=== PATIENT | male | born 1930 | race Caucasian/White ===

== ENCOUNTER → 2017-07-04 | Outpatient (CLI) | payer MEDICARE ==
[~2017-07-04] MED LIST: ACET650T24 PO; AMIO200T2 PO; AMLO10TA2 PO; AMLO5TAB2 PO; ASCO500C6 PO; ASPI-1181 PO; ASPI-555 PO; CA C1TAB98 PO; CARV12.511 PO; CARV25TA PO; CHRO1000 PO; CILO50TA PO; CILO50TA9 PO; CLOP75TA32 PO; CYAN1TAB44 PO; DOCU100C33 PO; DOXA4TAB3 PO; GLIP5TAB11 PO; GLYB5TAB8 PO; HYDR12.54 PO; KRIL1CAP18 PO; MAGN250T10 PO; MAGN400C PO; METF10004 PO; PANT40TA25 PO; POTA2TAB18 PO; ROSU20TA PO; TAMS0.4C32 PO; VALS160T28 PO; VITA1CAP17 PO; VITA400C70 PO; [UNRECOGNIZED DRUG - OTHER] PO
== END | disposition home or self-care (01) ==
LOC: SHCH 13:48
PROVIDERS: ATTEND Internal Medicine Cardiovascular Disease
DX: I21.09 ST elevation (STEMI) myocardial infarction involving other coronary artery of anterior wall (principal); I21.19 ST elevation (STEMI) myocardial infarction involving other coronary artery of inferior wall; I44.7 Left bundle-branch block, unspecified; I87.2 Venous insufficiency (chronic) (peripheral); I71.4 Abdominal aortic aneurysm, without rupture; I73.9 Peripheral vascular disease, unspecified; I70.1 Atherosclerosis of renal artery; G45.9 Transient cerebral ischemic attack, unspecified; R60.1 Generalized edema; Z95.1 Presence of aortocoronary bypass graft
CPT/HCPCS: 93880; 93925

== ENCOUNTER 2017-07-18 05:55 | Day surgery (SDC) | payer MEDICARE, OTHER ==
[2017-07-17 09:57] VITALS: BP 112/49
[2017-07-17 10:08] LABS: BASOPHILS % (AUTO) 1.4 % (0.0-5.0); EOSINOPHILS % (AUTO) 5.6 % (0.0-8.0); HEMATOCRIT 35.4 % (42-54); LYMPHOCYTES % (AUTO) 17.8 % (21.0-51.0); MEAN CORPUSCULAR HGB CONC 34.6 g/dL (32.0-36.0); MEAN CORPUSCULAR VOLUME 95.3 fL (79-99); MONOCYTES % (AUTO) 7.7 % (3.0-13.0); NEUTROPHILS % (AUTO) 67.5 % (40.0-77.0); PLATELET COUNT (AUTO) 242 K/uL (130-400); RED BLOOD CELL COUNT(AUTO) 3.72 MIL/uL (4.50-6.20); RED CELL DISTRIBUTION WIDTH 14.1 % (11.0-15.5); WHITE BLOOD COUNT (AUTO) 7.5 K/uL (4.8-10.8)
[2017-07-17 10:10] LABS: APPEARANCE,URINE Clear (CLEAR); BILIRUBIN,URINE Small (NEGATIVE); COLOR,URINE Dark Yellow (YELLOW); GLUCOSE, URINE (UA) Negative (NEGATIVE); KETONES,URINE 15 mg/dL (NEGATIVE); LEUKOCYTE ESTERASE ,URINE Trace (NEGATIVE); NITRATE,URINE Negative (NEGATIVE); OCCULT BLOOD,URINE Negative (NEGATIVE); PROTEIN,URINE Negative (NEGATIVE)
[2017-07-17 10:15] LABS: BACTERIA,URINE Rare /HPF (None Seen); WBC,URINE 0-1 /HPF (0-1)
[2017-07-17 10:15] LABS: CREATININE 1.4 mg/dL (0.5-1.5); POTASSIUM 4.7 mmol/L (3.5-5.1)
[2017-07-17 10:16] LABS: SQUAMOUS EPITHELIAL CELL,UR Rare /LPF (0-2)
[2017-07-17 10:17] LABS: INR 1.1 (0.85-1.15); PARTIAL THROMBOPLASTIN TIME 25.3 SEC (26.3-35.5); PROTHROMBIN TIME 11.5 SEC (9.6-11.6)
[~2017-07-18] VITALS: Ht 175.3 cm; Wt 86.8 kg
[2017-07-18] VITALS (8 sets, daily range): BP systolic 126–154; BP diastolic 50–67
[~2017-07-18 05:55] MED LIST changes: -ACET650T24 PO; -AMLO5TAB2 PO; -ASCO500C6 PO; -ASPI-555 PO; -CARV25TA PO; -CHRO1000 PO; -CILO50TA9 PO; -CYAN1TAB44 PO; -DOCU100C33 PO; -GLIP5TAB11 PO; -HYDR12.54 PO; -MAGN250T10 PO; -MAGN400C PO; -POTA2TAB18 PO; -TAMS0.4C32 PO; -VALS160T28 PO; -VITA400C70 PO; -[UNRECOGNIZED DRUG - OTHER] PO
[2017-07-18] MEDS: SODIUM CHLORIDE 0.9% 1000ML 1,000 ML IV ONE (07:00)
[2017-07-18] MEDS ORDERED: HEPARIN SODIUM 1000UNIT/ML 10ML VIAL ONE (07:12)
[2017-07-18] MEDS ORDERED: IOPAMIDOL-370 75 ML VIAL IV ONE (07:12)
[2017-07-18] MEDS ORDERED: BIVALIRUDIN 250 MG/VIAL IV ONE (07:12)
[2017-07-18] MEDS ORDERED: IOPAMIDOL-370 100 ML VIAL IV ONE (07:12)
[2017-07-18] MEDS ORDERED: FENTANYL CITRATE PF 50 MCG/1 ML 2ML VIAL ONE (07:13)
[2017-07-18] MEDS ORDERED: LIDOCAINE HCL 2% 20ML ONE (07:13)
[2017-07-18] MEDS ORDERED: NITROGLYCERIN 50 MG/D5% WATER 1 BOT ONE (07:13)
[2017-07-18] MEDS ORDERED: MIDAZOLAM HCL 1 MG/ML 2ML VIAL ONE (07:13)
[2017-07-18] MEDS ORDERED: SODIUM CHLORIDE 0.9% 1000ML 1,000 ML IV SCH (08:31)
[2017-07-18] MEDS ORDERED: NITROGLYCERIN 0.4 MG SL TAB SL PRN (08:45)
[2017-07-18] MEDS ORDERED: DEXTROSE 50%-WATER 50 ML DISP.SYRIN IV PRN (08:45)
[2017-07-18] MEDS ORDERED: METOPROLOL TARTRATE 1 MG/ML 5ML VIAL IV PRN (08:45)
[2017-07-18] MEDS ORDERED: GLUCAGON 1MG KIT 1 MG ML IM PRN (08:45)
[2017-07-18] MEDS ORDERED: INSULIN HUMULIN R 100 UNIT/ML 3ML SQ SCH (11:30)
== END 2017-07-18 13:56 | disposition home or self-care (01) ==
LOC: DAH 05:55
PROVIDERS: ATTEND Internal Medicine Cardiovascular Disease
DX: I70.213 Atherosclerosis of native arteries of extremities with intermittent claudication, bilateral legs (principal); E11.42 Type 2 diabetes mellitus with diabetic polyneuropathy; E78.5 Hyperlipidemia, unspecified; E11.21 Type 2 diabetes mellitus with diabetic nephropathy; E11.51 Type 2 diabetes mellitus with diabetic peripheral angiopathy without gangrene; Z79.899 Other long term (current) drug therapy; I10 Essential (primary) hypertension; Z98.890 Other specified postprocedural states; Z68.38 Body mass index [BMI] 38.0-38.9, adult; I71.4 Abdominal aortic aneurysm, without rupture; I21.09 ST elevation (STEMI) myocardial infarction involving other coronary artery of anterior wall; I21.19 ST elevation (STEMI) myocardial infarction involving other coronary artery of inferior wall
CPT/HCPCS: 36415; 71045; 80048; 81001; 82948 ×3; 85025; 85610; 85730; 93005; 93458; A4606; C1769 ×3; C1894 ×3; J1644; J2250; J3010; J3490 ×2; J7030; Q9967 ×2; 99152; 99153; J0583

== ENCOUNTER 2017-07-28 07:22 | Inpatient (IN) | payer OTHER ==
[~2017-07-28] VITALS: Ht 172.7 cm; Wt 88.5 kg
[2017-07-28] VITALS (16 sets, daily range): BP systolic 106–159; BP diastolic 50–67
[2017-07-28 08:42] LABS: BASOPHILS % (AUTO) 1.3 % (0.0-5.0); EOSINOPHILS % (AUTO) 6.2 % (0.0-8.0); HEMATOCRIT 35.1 % (42-54); LYMPHOCYTES % (AUTO) 18.1 % (21.0-51.0); MEAN CORPUSCULAR HGB CONC 33.9 g/dL (32.0-36.0); MEAN CORPUSCULAR VOLUME 94.3 fL (79-99); MONOCYTES % (AUTO) 9.8 % (3.0-13.0); NEUTROPHILS % (AUTO) 64.6 % (40.0-77.0); PLATELET COUNT (AUTO) 192 K/uL (130-400); RED BLOOD CELL COUNT(AUTO) 3.72 MIL/uL (4.50-6.20); RED CELL DISTRIBUTION WIDTH 14.9 % (11.0-15.5); WHITE BLOOD COUNT (AUTO) 6.6 K/uL (4.8-10.8)
[2017-07-28 08:49] LABS: HEMOGLOBIN A1C 5.9 % (4.0-6.0)
[2017-07-28 08:55] LABS: INR 1.09 (0.85-1.15); PARTIAL THROMBOPLASTIN TIME 24.5 SEC (26.3-35.5); PROTHROMBIN TIME 11.4 SEC (9.6-11.6)
[2017-07-28] MEDS ORDERED: GLIP5TAB11 PO (08:58)
[2017-07-28] MEDS ORDERED: MAGN250T10 PO (09:00)
[2017-07-28] MEDS ORDERED: DOCU100C33 PO (09:00)
[2017-07-28] MEDS ORDERED: VITA400C70 PO (09:00)
[2017-07-28] MEDS ORDERED: ACET650T24 PO (09:00)
[2017-07-28] MEDS ORDERED: HYDR12.54 PO (09:00)
[2017-07-28 09:02] LABS: ALBUMIN 3.5 g/dL (3.5-5.0); BILIRUBIN,TOTAL 0.3 mg/dL (0.2-1.0); CREATININE 1.4 mg/dL (0.5-1.5); POTASSIUM 4.3 mmol/L (3.5-5.1); TOTAL PROTEIN, SERUM 6.5 g/dL (6.0-8.3)
[2017-07-28] MEDS ORDERED: PROPOFOL 10 MG/ML 20ML VIAL IV ONE (10:20)
[2017-07-28] MEDS ORDERED: PROTAMINE SULFATE 10 MG/ML 25ML VIAL IV ONE (10:20)
[2017-07-28] MEDS ORDERED: GLYCOPYRROLATE 0.2 MG/ML 5 ML VIAL ONE (10:20)
[2017-07-28] MEDS ORDERED: NEOSTIGMINE METHYLSULFATE 1MG/ML IV ONE (10:20)
[2017-07-28] MEDS ORDERED: AMIODARONE HCL 900MG/18ML IV ONE (10:20)
[2017-07-28] MEDS ORDERED: EPINEPHRINE 1 MG/ML AMPULE ONE (10:20)
[2017-07-28] MEDS ORDERED: AMINOCAPROIC ACID 250 MG/ML 20 ML VIAL IV ONE (10:20)
[2017-07-28] MEDS ORDERED: MILRINONE-D5W 20 MG/100 ML 0 ML IV ONE (10:20)
[2017-07-28] MEDS ORDERED: LIDOCAINE PF 2% 5ML ABBOJECT ONE (10:20)
[2017-07-28] MEDS ORDERED: MIDAZOLAM HCL 1 MG/ML 5ML VIAL ONE (10:20)
[2017-07-28] MEDS ORDERED: NOREPINEPHRINE BITARTRATE 1 MG/1 ML ML IV ONE (10:20)
[2017-07-28] MEDS ORDERED: HEPARIN SODIUM 1000UNIT/ML 10ML VIAL ONE ×3 (10:20→11:30)
[2017-07-28] MEDS ORDERED: ROCURONIUM BROMIDE 10MG/1ML 5ML VL ONE (10:20)
[2017-07-28] MEDS ORDERED: FENTANYL CITRATE PF 50 MCG/1 ML 20ML VIAL IJ ONE (10:20)
[2017-07-28] MEDS ORDERED: ESMOLOL HCL 10 MG/ML 10 ML VIAL ONE (10:20)
[2017-07-28] MEDS ORDERED: SODIUM CHLORIDE 0.9% 1000ML 1,000 ML IV ONE (10:42)
[2017-07-28] MEDS ORDERED: THROMBIN-JMI 5000 UNIT/VIAL TP ONE (10:52)
[2017-07-28] MEDS: CEFUROXIME SODIUM 1.5 GM VIAL ONE ×2 (11:01→11:08)
[2017-07-28 11:14] LABS: ABG BASE EXCESS 3.9 mmol/L (-2.0-3.0); ABG OXYGEN SATURATION 99.4 % (95.0-99.0); ABG PCO2 35 mmHg (35-48)
[2017-07-28] MEDS ORDERED: OCTYL 2-CYANOACRYLATE 1 EACH TP ONE (11:30)
[2017-07-28] MEDS ORDERED: PAPAVERINE HCL 30 MG/ML 2ML VIAL ONE (11:30)
[2017-07-28] MEDS ORDERED: BACITRACIN 50,000 UNIT VIAL ONE (11:30)
[2017-07-28 13:17] LABS: ABG BASE EXCESS 0.4 mmol/L (-2.0-3.0); ABG HCO3 24.3 mmol/L (21.0-28.0); ABG OXYGEN SATURATION 99.5 % (95.0-99.0); ABG PCO2 37 mmHg (35-48)
[2017-07-28] MEDS ORDERED: SODIUM CHLORIDE 0.9% 500ML 500 ML IV SCH (13:37)
[2017-07-28] MEDS ORDERED: GLUCAGON 1MG KIT 1 MG ML IM PRN (13:45)
[2017-07-28] MEDS ORDERED: MAGNESIUM 2GM PREMIX 50ML 50 ML IV PRN (13:45)
[2017-07-28] MEDS ORDERED: INSULIN REGULAR, HUMAN 3ML 100 UNIT in SODIUM CHLORIDE 0.9% 99 ML IV SCH ×2 (13:45)
[2017-07-28] MEDS ORDERED: NOREPINEPHRINE 4MG/NS 250ML 250 ML IV PRN (13:45)
[2017-07-28] MEDS ORDERED: NICARDIPINE HCL 100 MG in SODIUM CHLORIDE 0.9% 100 ML IV PRN (13:45)
[2017-07-28] MEDS ORDERED: EPINEPHRINE 2 MG in SODIUM CHLORIDE 0.9% 250 ML IV PRN (13:45)
[2017-07-28] MEDS ORDERED: MORPHINE SULFATE 2 MG/ML 1ML SYG IV PRN (13:45)
[2017-07-28] MEDS ORDERED: SODIUM BICARB 8.4% 50ML SYRINGE IV PRN (13:45)
[2017-07-28] MEDS ORDERED: MORPHINE SULFATE 4 MG/1ML SYG IV PRN (13:45)
[2017-07-28] MEDS ORDERED: HYDROCODONE/ACETAMINOPHEN 5/325 MG TAB PO PRN (13:45)
[2017-07-28] MEDS ORDERED: PROPOFOL 1000 MG/100 ML 100 ML IV PRN (13:45)
[2017-07-28] MEDS ORDERED: DEXTROSE 50%-WATER 50 ML DISP.SYRIN IV PRN (13:45)
[2017-07-28] MEDS ORDERED: SODIUM CHLORIDE 0.9% 10 ML VIAL IVP PRN (13:45)
[2017-07-28] MEDS ORDERED: POTASSIUM CHLORIDE 20MEQ/100ML 100 ML IV PRN (13:45)
[2017-07-28] MEDS ORDERED: POTASSIUM PHOS 15 mMOL+NS250ML 250 ML IV PRN (13:45)
[2017-07-28] MEDS ORDERED: SODIUM CHLORIDE 0.9% 250 ML IV PRN (13:45)
[2017-07-28] MEDS ORDERED: ACETAMINOPHEN 650 MG SUPPOSITORY RC PRN (13:45)
[2017-07-28] MEDS ORDERED: AMINOCAPROIC ACID 15,000 MG in SODIUM CHLORIDE 0.9% 250 ML IV SCH (13:45)
[2017-07-28] MEDS ORDERED: CALCIUM GLUCONATE 1 GM in SODIUM CHLORIDE 0.9% 50 ML IV PRN (13:45)
[2017-07-28] MEDS ORDERED: NITROGLYCERIN 50 MG/D5% WATER 250 BOT IV SCH (13:45)
[2017-07-28] MEDS ORDERED: ACETAMINOPHEN 325 MG TAB PO PRN (13:45)
[2017-07-28] MEDS ORDERED: SODIUM CHLORIDE 0.9% 1000ML 1,000 ML IV SCH (13:45)
[2017-07-28] MEDS ORDERED: ALBUMIN (HUMAN) 5% 250 ML IV PRN (13:45)
[2017-07-28 13:56] LABS: ABG BASE EXCESS -0.2 mmol/L (-2.0-3.0); ABG OXYGEN SATURATION 99.2 % (95.0-99.0); ABG PCO2 37 mmHg (35-48)
[2017-07-28] MEDS ORDERED: ROPIVACAINE 0.2% 2MG/ML 100ML VIAL IJ ONE (14:00)
[2017-07-28] MEDS: AMBU PUMP 1 EACH EACH MISC SCH (14:51)
[2017-07-28 15:06] LABS: ABG BASE EXCESS -2.4 mmol/L (-2.0-3.0); ABG HCO3 21.8 mmol/L (21.0-28.0); ABG OXYGEN SATURATION 99.1 % (95.0-99.0); ABG PCO2 36 mmHg (35-48)
[2017-07-28 15:33] LABS: HEMATOCRIT 32.7 % (42-54); MEAN CORPUSCULAR HGB CONC 34.9 g/dL (32.0-36.0); MEAN CORPUSCULAR VOLUME 94.8 fL (79-99); PLATELET COUNT (AUTO) 198 K/uL (130-400); RED BLOOD CELL COUNT(AUTO) 3.45 MIL/uL (4.50-6.20); WHITE BLOOD COUNT (AUTO) 17.7 K/uL (4.8-10.8)
[2017-07-28 15:54] LABS: CREATININE 1.4 mg/dL (0.5-1.5); MAGNESIUM 1.3 mg/dL (1.80-2.40); PHOSPHORUS 4.2 mg/dL (2.5-4.9); POTASSIUM 4.7 mmol/L (3.5-5.1)
[2017-07-28 17:08] LABS: ABG BASE EXCESS -2.6 mmol/L (-2.0-3.0); ABG HCO3 20.8 mmol/L (21.0-28.0); ABG OXYGEN SATURATION 98.7 % (95.0-99.0); ABG PCO2 32 mmHg (35-48)
[2017-07-28] MEDS ORDERED: SODIUM BICARB 50MEQ 50ML VIAL ONE (17:08)
[2017-07-28] MEDS: ONDANSETRON HCL 4 MG/2 ML VIAL IV PRN (18:36)
[2017-07-28 19:11] LABS: ABG BASE EXCESS 0.6 mmol/L (-2.0-3.0); ABG HCO3 24.7 mmol/L (21.0-28.0); ABG PCO2 38 mmHg (35-48)
[2017-07-28] MEDS: HYDROCODONE/ACETAMINOPHEN 5/325 MG TAB PO PRN (21:10)
[2017-07-28] MEDS ORDERED: CEFUROXIME 1.5GM+NS 100ML 100 ML IV SCH (21:45)
[2017-07-28] MEDS ORDERED: FUROSEMIDE 10 MG/ML 4ML VIAL ONE (22:08)
[2017-07-28] MEDS: WATER FOR INJECTION,STERILE 20 ML VIAL IJ SCH (22:13)
[2017-07-28] MEDS: CEFUROXIME SODIUM 1.5 GM VIAL IVP SCH (22:13)
[2017-07-28] MEDS ORDERED: FUROSEMIDE 10 MG/ML 4ML VIAL IV SCH (22:15)
[2017-07-29] VITALS (25 sets, daily range): BP systolic 69–142; BP diastolic 39–68
[2017-07-29] MEDS: HYDROCODONE/ACETAMINOPHEN 5/325 MG TAB PO PRN ×3 (02:52→22:16)
[2017-07-29 03:17] LABS: HEMATOCRIT 30.6 % (42-54); MEAN CORPUSCULAR HGB CONC 33.7 g/dL (32.0-36.0); MEAN CORPUSCULAR VOLUME 94.9 fL (79-99); PLATELET COUNT (AUTO) 169 K/uL (130-400); RED BLOOD CELL COUNT(AUTO) 3.22 MIL/uL (4.50-6.20); RED CELL DISTRIBUTION WIDTH 14.9 % (11.0-15.5); WHITE BLOOD COUNT (AUTO) 14.9 K/uL (4.8-10.8)
[2017-07-29 03:30] LABS: CREATININE 1.7 mg/dL (0.5-1.5); MAGNESIUM 1.9 mg/dL (1.80-2.40); PHOSPHORUS 5.4 mg/dL (2.5-4.9); POTASSIUM 4.1 mmol/L (3.5-5.1)
[2017-07-29] MEDS: FAMOTIDINE/PF 20 MG/2 ML VIAL IV SCH (08:20)
[2017-07-29] MEDS: ONDANSETRON HCL 4 MG/2 ML VIAL IV PRN ×2 (08:21→14:50)
[2017-07-29] MEDS: AMBU PUMP 1 EACH EACH MISC SCH (12:30)
[2017-07-29] MEDS: WATER FOR INJECTION,STERILE 20 ML VIAL IJ SCH ×2 (14:00→22:14)
[2017-07-29] MEDS: CEFUROXIME SODIUM 1.5 GM VIAL IVP SCH ×2 (14:00→22:14)
[2017-07-29] MEDS ORDERED: WATER FOR INJECTION,STERILE 5 ML VIAL ONE (14:51)
[2017-07-29] MEDS ORDERED: FUROSEMIDE 20 MG TABLET PO SCH (17:00)
[2017-07-29] MEDS: DOCUSATE SODIUM 100 MG CAP PO SCH (21:00)
[2017-07-29] MEDS: ATORVASTATIN CALCIUM 40 MG TABLET PO SCH (21:00)
[2017-07-29] MEDS ORDERED: METOPROLOL TARTRATE 25 MG TAB PO SCH (21:00)
[2017-07-29] MEDS ORDERED: DOXAZOSIN MESYLATE 2 MG TABLET PO SCH (21:00)
[2017-07-30] VITALS (14 sets, daily range): BP systolic 111–132; BP diastolic 50–65
[2017-07-30] MEDS: ONDANSETRON HCL 4 MG/2 ML VIAL IV PRN ×3 (04:52→17:15)
[2017-07-30 05:40] LABS: HEMATOCRIT 30.3 % (42-54); MEAN CORPUSCULAR HEMOGLOBIN 31.5 pg (27.0-33.0); MEAN CORPUSCULAR HGB CONC 33.8 g/dL (32.0-36.0); MEAN CORPUSCULAR VOLUME 93.1 fL (79-99); PLATELET COUNT (AUTO) 155 K/uL (130-400); RED BLOOD CELL COUNT(AUTO) 3.25 MIL/uL (4.50-6.20); RED CELL DISTRIBUTION WIDTH 15.9 % (11.0-15.5); WHITE BLOOD COUNT (AUTO) 14.3 K/uL (4.8-10.8)
[2017-07-30 05:54] LABS: CREATININE 2.3 mg/dL (0.5-1.5); MAGNESIUM 2.3 mg/dL (1.80-2.40); PHOSPHORUS 5.4 mg/dL (2.5-4.9); POTASSIUM 4.3 mmol/L (3.5-5.1)
[2017-07-30] MEDS: INSULIN HUMULIN R 100 UNIT/ML 3ML SQ SCH ×4 (07:30→21:00)
[2017-07-30] MEDS ORDERED: FUROSEMIDE 20 MG TABLET PO SCH (09:00)
[2017-07-30] MEDS: ASPIRIN 81 MG EC TAB PO SCH (10:41)
[2017-07-30] MEDS: FAMOTIDINE/PF 20 MG/2 ML VIAL IV SCH (10:42)
[2017-07-30] MEDS: HYDROCODONE/ACETAMINOPHEN 5/325 MG TAB PO PRN (10:45)
[2017-07-30] MEDS: AMBU PUMP 1 EACH EACH MISC SCH (12:30)
[2017-07-30 15:18] LABS: APPEARANCE,URINE SL CLOUDY (CLEAR); BILIRUBIN,URINE SMALL (NEGATIVE); COLOR,URINE YELLOW (YELLOW); GLUCOSE, URINE (UA) NEGATIVE (NEGATIVE); KETONES,URINE NEGATIVE (NEGATIVE); LEUKOCYTE ESTERASE ,URINE NEGATIVE (NEGATIVE); NITRATE,URINE NEGATIVE (NEGATIVE); OCCULT BLOOD,URINE LARGE (NEGATIVE); PH,URINE 5.5 (5.0-8.0); PROTEIN,URINE 30 (NEGATIVE); UROBILINOGEN,URINE 0.2 mg/dL (0.2-1.0)
[2017-07-30 15:29] LABS: BACTERIA,URINE Few /HPF (None Seen)
[2017-07-30 15:30] LABS: SQUAMOUS EPITHELIAL CELL,UR Rare /LPF (0-2)
[2017-07-30 15:31] LABS: MUCUS,URINE Few LPF (None Seen)
[2017-07-30] MEDS: ATORVASTATIN CALCIUM 40 MG TABLET PO SCH (20:59)
[2017-07-30] MEDS: METOPROLOL TARTRATE 25 MG TAB PO SCH (21:00)
[2017-07-30] MEDS: DOCUSATE SODIUM 100 MG CAP PO SCH (21:00)
[2017-07-31] VITALS (7 sets, daily range): BP systolic 109–138; BP diastolic 48–58
[2017-07-31 04:34] LABS: HEMATOCRIT 27.4 % (42-54); MEAN CORPUSCULAR HEMOGLOBIN 32.2 pg (27.0-33.0); MEAN CORPUSCULAR HGB CONC 34.8 g/dL (32.0-36.0); MEAN CORPUSCULAR VOLUME 92.6 fL (79-99); PLATELET COUNT (AUTO) 148 K/uL (130-400); RED BLOOD CELL COUNT(AUTO) 2.96 MIL/uL (4.50-6.20); RED CELL DISTRIBUTION WIDTH 15.4 % (11.0-15.5)
[2017-07-31 05:02] LABS: CREATININE 2.5 mg/dL (0.5-1.5); MAGNESIUM 2.5 mg/dL (1.80-2.40); POTASSIUM 4.3 mmol/L (3.5-5.1); URIC ACID 8.8 mg/dL (2.6-7.2)
[2017-07-31] MEDS: INSULIN HUMULIN R 100 UNIT/ML 3ML SQ SCH ×4 (06:46→20:55)
[2017-07-31] MEDS: ASPIRIN 81 MG EC TAB PO SCH (08:17)
[2017-07-31] MEDS: FAMOTIDINE 20MG TAB 20 MG TAB PO SCH (08:17)
[2017-07-31] MEDS: METOPROLOL TARTRATE 25 MG TAB PO SCH ×2 (08:17→20:54)
[2017-07-31] MEDS: FOLIC ACID/VITAMIN B COMP W-C 1 MG CAPSULE PO SCH (08:17)
[2017-07-31] MEDS: ENOXAPARIN SODIUM 30 MG/0.3 ML SQ SCH (08:18)
[2017-07-31] MEDS ORDERED: FUROSEMIDE 20 MG TABLET PO SCH (09:00)
[2017-07-31] MEDS: LINAGLIPTIN 5 MG TABLET PO SCH (09:27)
[2017-07-31] MEDS: AMBU PUMP 1 EACH EACH MISC SCH (11:47)
[2017-07-31] MEDS: ATORVASTATIN CALCIUM 40 MG TABLET PO SCH (20:54)
[2017-07-31] MEDS: DOCUSATE SODIUM 100 MG CAP PO SCH (20:54)
[2017-08-01 03:16] VITALS: BP 114/44
[2017-08-01 04:29] LABS: MEAN CORPUSCULAR HEMOGLOBIN 31.7 pg (27.0-33.0); MEAN CORPUSCULAR HGB CONC 34.2 g/dL (32.0-36.0); MEAN CORPUSCULAR VOLUME 92.7 fL (79-99); PLATELET COUNT (AUTO) 154 K/uL (130-400); RED BLOOD CELL COUNT(AUTO) 3.02 MIL/uL (4.50-6.20); RED CELL DISTRIBUTION WIDTH 14.8 % (11.0-15.5); WHITE BLOOD COUNT (AUTO) 9.1 K/uL (4.8-10.8)
[2017-08-01 04:42] LABS: CREATININE 2.4 mg/dL (0.5-1.5); POTASSIUM 4.1 mmol/L (3.5-5.1)
[2017-08-01] MEDS: INSULIN HUMULIN R 100 UNIT/ML 3ML SQ SCH ×4 (06:34→21:52)
[2017-08-01 07:44] VITALS: BP 127/54
[2017-08-01] MEDS: ENOXAPARIN SODIUM 30 MG/0.3 ML SQ SCH (10:17)
[2017-08-01] MEDS: FAMOTIDINE 20MG TAB 20 MG TAB PO SCH (10:17)
[2017-08-01] MEDS: LINAGLIPTIN 5 MG TABLET PO SCH (10:17)
[2017-08-01] MEDS: METOPROLOL TARTRATE 25 MG TAB PO SCH ×2 (10:17→21:50)
[2017-08-01] MEDS: FOLIC ACID/VITAMIN B COMP W-C 1 MG CAPSULE PO SCH (10:18)
[2017-08-01] MEDS: ASPIRIN 81 MG EC TAB PO SCH (10:19)
[2017-08-01] MEDS ORDERED: SENNOSIDES 8.6 MG TABLET PO SCH (10:30)
[2017-08-01] MEDS ORDERED: TAMSULOSIN HCL 0.4 MG CAP.ER.24H ONE (11:11)
[2017-08-01] MEDS ORDERED: TAMSULOSIN HCL 0.4 MG CAP.ER.24H PO SCH (11:15)
[2017-08-01 11:41] VITALS: BP 134/53
[2017-08-01] MEDS: AMBU PUMP 1 EACH EACH MISC SCH (12:30)
[2017-08-01 16:00] VITALS: BP 122/55
[2017-08-01 19:58] VITALS: BP 122/53
[2017-08-01] MEDS: ATORVASTATIN CALCIUM 40 MG TABLET PO SCH (21:49)
[2017-08-01] MEDS: DOCUSATE SODIUM 100 MG CAP PO SCH (21:49)
[2017-08-01] MEDS: HYDROCODONE/ACETAMINOPHEN 5/325 MG TAB PO PRN (21:50)
[2017-08-01 23:45] VITALS: BP 128/56
[2017-08-02 03:56] VITALS: BP 122/46
[2017-08-02 04:44] LABS: HEMATOCRIT 25.7 % (42-54)
[2017-08-02 05:34] LABS: CREATININE 2.2 mg/dL (0.5-1.5); POTASSIUM 3.5 mmol/L (3.5-5.1)
[2017-08-02] MEDS: INSULIN HUMULIN R 100 UNIT/ML 3ML SQ SCH ×4 (06:06→22:30)
[2017-08-02 07:48] VITALS: BP 144/56
[2017-08-02] MEDS: FOLIC ACID/VITAMIN B COMP W-C 1 MG CAPSULE PO SCH (08:24)
[2017-08-02] MEDS: METOPROLOL TARTRATE 25 MG TAB PO SCH ×2 (08:24→21:31)
[2017-08-02] MEDS: ASPIRIN 81 MG EC TAB PO SCH (08:24)
[2017-08-02] MEDS: TAMSULOSIN HCL 0.4 MG CAP.ER.24H PO SCH (08:24)
[2017-08-02] MEDS: LINAGLIPTIN 5 MG TABLET PO SCH (08:24)
[2017-08-02] MEDS: FAMOTIDINE 20MG TAB 20 MG TAB PO SCH (08:24)
[2017-08-02] MEDS: SENNOSIDES 8.6 MG TABLET PO SCH (08:24)
[2017-08-02] MEDS: ENOXAPARIN SODIUM 30 MG/0.3 ML SQ SCH (08:25)
[2017-08-02] MEDS: HYDROCODONE/ACETAMINOPHEN 5/325 MG TAB PO PRN (08:25)
[2017-08-02 12:09] VITALS: BP 115/50
[2017-08-02] MEDS: AMBU PUMP 1 EACH EACH MISC SCH (12:10)
[2017-08-02] MEDS ORDERED: POTASSIUM CHLORIDE 20 MEQ ERTAB PO SCH (13:30)
[2017-08-02 16:00] VITALS: BP 107/61
[2017-08-02] MEDS ORDERED: LACTULOSE 20 GM/30 ML UDCUP PO PRN (17:00)
[2017-08-02 19:32] VITALS: BP 129/59
[2017-08-02] MEDS ORDERED: TRAMADOL HCL 50 MG TABLET PO PRN ×2 (21:15)
[2017-08-02] MEDS: ATORVASTATIN CALCIUM 40 MG TABLET PO SCH (21:30)
[2017-08-02] MEDS: DOCUSATE SODIUM 100 MG CAP PO SCH (21:30)
[2017-08-02 23:48] VITALS: BP 131/64
[2017-08-03 03:41] VITALS: BP 117/57
[2017-08-03 04:37] LABS: CREATININE 1.8 mg/dL (0.5-1.5); POTASSIUM 3.9 mmol/L (3.5-5.1)
[2017-08-03] MEDS: INSULIN HUMULIN R 100 UNIT/ML 3ML SQ SCH ×2 (06:28→11:38)
[2017-08-03 08:00] VITALS: BP 128/64
[2017-08-03] MEDS: FOLIC ACID/VITAMIN B COMP W-C 1 MG CAPSULE PO SCH (08:57)
[2017-08-03] MEDS: LINAGLIPTIN 5 MG TABLET PO SCH (08:57)
[2017-08-03] MEDS: FAMOTIDINE 20MG TAB 20 MG TAB PO SCH (08:57)
[2017-08-03] MEDS: SENNOSIDES 8.6 MG TABLET PO SCH (08:57)
[2017-08-03] MEDS: ASPIRIN 81 MG EC TAB PO SCH (08:57)
[2017-08-03] MEDS: TAMSULOSIN HCL 0.4 MG CAP.ER.24H PO SCH (08:57)
[2017-08-03] MEDS: METOPROLOL TARTRATE 25 MG TAB PO SCH (08:58)
[2017-08-03] MEDS: ENOXAPARIN SODIUM 30 MG/0.3 ML SQ SCH (08:58)
[2017-08-03] MEDS: AMBU PUMP 1 EACH EACH MISC SCH (11:38)
[2017-08-03 11:44] VITALS: BP 140/58
[2017-08-03 16:00] VITALS: BP 144/75
== END 2017-08-03 21:15 | DRG 228 ==
LOC: DAHIP 07:22 → EDSTATUS 12:00 → 2CV 14:30 → 2CH 07-29 05:33 → 2AH 07-30 06:53
PROVIDERS: ADMIT Thoracic Surgery (Cardiothoracic Vascular Surgery); ATTEND Thoracic Surgery (Cardiothoracic Vascular Surgery)
PROC: 06BQ4ZZ Excision of Left Saphenous Vein, Percutaneous Endoscopic Approach (ICD-10-PCS; 2017-07-28)
PROC: 02100Z9 Bypass Coronary Artery, One Artery from Left Internal Mammary, Open Approach (ICD-10-PCS; principal; 2017-07-28 10:57)
PROC: 02C00ZZ Extirpation of Matter from Coronary Artery, One Artery, Open Approach (ICD-10-PCS; 2017-07-28 10:57)
PROC: 021109W Bypass Coronary Artery, Two Arteries from Aorta with Autologous Venous Tissue, Open Approach (ICD-10-PCS; 2017-07-28 10:57)
PROC: 30233N1 Transfusion of Nonautologous Red Blood Cells into Peripheral Vein, Percutaneous Approach (ICD-10-PCS; 2017-07-29)
DX: I25.10 Atherosclerotic heart disease of native coronary artery without angina pectoris (principal); N17.0 Acute kidney failure with tubular necrosis; D62 Acute posthemorrhagic anemia; E11.40 Type 2 diabetes mellitus with diabetic neuropathy, unspecified; E11.22 Type 2 diabetes mellitus with diabetic chronic kidney disease; I25.5 Ischemic cardiomyopathy; N18.3 Chronic kidney disease, stage 3 (moderate); I12.9 Hypertensive chronic kidney disease with stage 1 through stage 4 chronic kidney disease, or unspecified chronic kidney disease; N40.0 Benign prostatic hyperplasia without lower urinary tract symptoms; E78.5 Hyperlipidemia, unspecified; I48.91 Unspecified atrial fibrillation; E11.51 Type 2 diabetes mellitus with diabetic peripheral angiopathy without gangrene; I95.1 Orthostatic hypotension; E11.65 Type 2 diabetes mellitus with hyperglycemia; Z95.5 Presence of coronary angioplasty implant and graft; Z82.49 Family history of ischemic heart disease and other diseases of the circulatory system; Z79.82 Long term (current) use of aspirin; I25.2 Old myocardial infarction; Z90.2 Acquired absence of lung [part of]; Z87.891 Personal history of nicotine dependence
CPT/HCPCS: 36415; 36600; 71045; 71046; 76770; 80048; 80053; 81001; 82330; 82435; 82803; 82947; 82948; 83036; 83605; 83735; 84100; 84132; 84295; 84550; 85018; 85025; 85027; 85347; 85610; 85730; 86850; 86900; 86901; 86922; 93005; 94002; 94010; 94150; A7048; J0171; J0282; J0697; J1644; J1650; J1815; J1940; J2001; J2250; J2260; J2270; J2405; J2440; J2704; J2710; J2720; J2795; J3010; J3475; J3490; J7030; J7040; P9016

== ENCOUNTER 2017-08-25 12:13 | Observation (INO) | payer OTHER ==
[~2017-08-25 12:13] MED LIST changes: +ACET650T24 PO; -AMIO200T2 PO; -AMLO10TA2 PO; -CARV12.511 PO; -CILO50TA PO; -CLOP75TA32 PO; +DOCU100C33 PO; +GLIP5TAB11 PO; -GLYB5TAB8 PO; +MAGN250T10 PO; -METF10004 PO; -PANT40TA25 PO; -ROSU20TA PO; +VITA400C70 PO
[2017-08-25] MEDS ORDERED: SODIUM CHLORIDE 0.9% 1000ML 1,000 ML IV ONE (12:52)
[2017-08-25 13:45] LABS: CREATININE 1.9 mg/dL (0.5-1.5); POTASSIUM 3.5 mmol/L (3.5-5.1)
[2017-08-25 13:50] LABS: ALBUMIN 2.9 g/dL (3.5-5.0); BILIRUBIN,TOTAL 0.3 mg/dL (0.2-1.0); TOTAL PROTEIN, SERUM 6.4 g/dL (6.0-8.3)
[2017-08-25 13:56] LABS: BASOPHILS % (AUTO) 1.1 % (0.0-5.0); EOSINOPHILS % (AUTO) 0.8 % (0.0-8.0); HEMATOCRIT 32.2 % (42-54); LYMPHOCYTES % (AUTO) 15.6 % (21.0-51.0); MEAN CORPUSCULAR HEMOGLOBIN 30.1 pg (27.0-33.0); MEAN CORPUSCULAR HGB CONC 33.4 g/dL (32.0-36.0); MEAN CORPUSCULAR VOLUME 90.3 fL (79-99); MONOCYTES % (AUTO) 9.2 % (3.0-13.0); NEUTROPHILS % (AUTO) 73.3 % (40.0-77.0); PLATELET COUNT (AUTO) 307 K/uL (130-400); RED BLOOD CELL COUNT(AUTO) 3.56 MIL/uL (4.50-6.20); RED CELL DISTRIBUTION WIDTH 16.2 % (11.0-15.5); WHITE BLOOD COUNT (AUTO) 6.8 K/uL (4.8-10.8)
[2017-08-25] MEDS ORDERED: ALBUMIN (HUMAN) 25% 0 ML IV ONE (14:17)
[2017-08-25] MEDS ORDERED: ALBUMIN (HUMAN) 5% 250 ML IV SCH (14:24)
== END 2017-08-25 16:20 | disposition home or self-care (01) ==
LOC: EDH 12:13 → EDHIP 12:40
PROVIDERS: ADMIT Thoracic Surgery (Cardiothoracic Vascular Surgery); ATTEND Thoracic Surgery (Cardiothoracic Vascular Surgery)
DX: E86.0 Dehydration (principal); E11.9 Type 2 diabetes mellitus without complications; I10 Essential (primary) hypertension; E78.00 Pure hypercholesterolemia, unspecified; I25.10 Atherosclerotic heart disease of native coronary artery without angina pectoris; Z85.118 Personal history of other malignant neoplasm of bronchus and lung; Z87.891 Personal history of nicotine dependence
CPT/HCPCS: 36415; 71045; 80053; 85025; 93005; 99285; G0378 ×4; J7030; P9045; P9046

== ENCOUNTER → 2017-11-27 | Outpatient (CLI) | payer OTHER ==
[2017-11-27 10:19] LABS: INR 1.11 (0.85-1.15); PARTIAL THROMBOPLASTIN TIME 26.8 SEC (26.3-35.5); PROTHROMBIN TIME 11.6 SEC (9.6-11.6)
[2017-11-27 11:40] LABS: APPEARANCE BODY FLUID CLEAR (CLEAR); BODY FLUID WBC 419 /cu. mm.; COLOR,BODY FLUID YELLOW (LT YELLOW); SPECIMENTYPE,BODY FLUID PLEURAL; TOTAL VOLUME,BODY FLUID 1500 mL
[2017-11-27 11:41] LABS: BODY FLUID RBC 648 /cu. mm.
[2017-11-27 11:54] LABS: BF LYMPHOCYTE 35 %; BF MESOTHELIAL 59 %
[2017-11-27 11:59] LABS: AMYLASE,BODY FLUID 38 U/L
== END | disposition home or self-care (01) ==
LOC: RAH 09:30
PROVIDERS: ATTEND Internal Medicine Cardiovascular Disease
DX: J90 Pleural effusion, not elsewhere classified (principal)
CPT/HCPCS: 32555; 36415; 71045; 82150; 83615; 84157; 85610; 85730; 87071; 87205; 88108; 88305; 89051

== ENCOUNTER 2019-04-12 06:57 | Day surgery (SDC) | payer OTHER ==
[2019-04-08 11:57] VITALS: BP 119/62
[2019-04-08 11:59] LABS: BASOPHILS % (AUTO) 0.9 % (0.0-5.0); HEMATOCRIT 40.6 % (42-54); LYMPHOCYTES % (AUTO) 12.4 % (21.0-51.0); MEAN CORPUSCULAR HEMOGLOBIN 31.9 pg (27.0-33.0); MEAN CORPUSCULAR VOLUME 96.6 fL (79-99); MONOCYTES % (AUTO) 10.2 % (3.0-13.0); NEUTROPHILS % (AUTO) 74.5 % (40.0-77.0); PLATELET COUNT (AUTO) 125 K/uL (130-400); RED BLOOD CELL COUNT(AUTO) 4.21 MIL/uL (4.50-6.20); RED CELL DISTRIBUTION WIDTH 15.9 % (11.0-15.5); WHITE BLOOD COUNT (AUTO) 6.7 K/uL (4.8-10.8)
[2019-04-08 12:02] LABS: APPEARANCE,URINE Clear (CLEAR); BILIRUBIN,URINE Negative (NEGATIVE); COLOR,URINE Yellow (YELLOW); GLUCOSE, URINE (UA) 500 mg/dL (NEGATIVE); KETONES,URINE Negative (NEGATIVE); LEUKOCYTE ESTERASE ,URINE Negative (NEGATIVE); NITRATE,URINE Negative (NEGATIVE); OCCULT BLOOD,URINE Negative (NEGATIVE); PROTEIN,URINE Negative (NEGATIVE)
[2019-04-08 12:13] LABS: INR 1.19 (0.85-1.15); PARTIAL THROMBOPLASTIN TIME 28.5 SEC (26.3-35.5); PROTHROMBIN TIME 12.4 SEC (9.6-11.6)
[2019-04-08 12:14] LABS: CREATININE 2.2 mg/dL (0.5-1.5); POTASSIUM 5.5 mmol/L (3.5-5.1)
[2019-04-08 12:29] LABS: BACTERIA,URINE None Seen /HPF (None Seen); RBC,URINE 0-1 /HPF (0-1); SQUAMOUS EPITHELIAL CELL,UR 0-2 /HPF (0-2); WBC,URINE 0-1 /HPF (0-1)
--- NOTE | 2019-04-09 17:01 | NUR ---
LABS INFORMED CASPER OSPINA OF ABNORMAL CHEST X RAY/ POTASSIUM/BUN/CREA/PLATELET. ORDERS RECEIVED TO REDRAW BMP ON AM OF PROCEDURE.
[~2019-04-12] VITALS: Ht 172.7 cm; Wt 85.3 kg
[2019-04-12] VITALS (8 sets, daily range): BP systolic 118–155; BP diastolic 58–76
[~2019-04-12 06:57] MED LIST changes: -ACET650T24 PO; +AMIO200T5 PO; +APIX2.5T PO; -ASPI-1181 PO; +ATOR40TA69 PO; -CA C1TAB98 PO; +CALC-1106 PO; -DOCU100C33 PO; -DOXA4TAB3 PO; +FURO40TA5 PO; -KRIL1CAP18 PO; +LEGATRIN PM PO; +LOSA25TA41 PO; +METO25 PO; +MEXI150C2 PO; +POTA10TA14 PO; +TAMS-1 PO; +THIA250T9 PO; -VITA1CAP17 PO; -VITA400C70 PO; +VITAMIN E PO
--- NOTE | 2019-04-12 07:45 | NUR ---
PATIENT ARRIVED PATIENT ARRIVED TO DAY PATIENT ACCOMPANIED BY HIMSELF. PATIENT AAO X3, RESPIRATIONS UNLABORED, VITAL SIGNS STABLE, DENIES ANY PAIN AT THIS TIME. PROCEDURE VERIFIED AND CONFIRMED WITH PATIENT, ALL QUESTIONS/CONCERNS ADDRESSED. HOSPITAL ROUTINE EXPLAINED TO PATIENT AND PATIENT VERBALIZED UNDERSTANDING. SIDE RAILS UPX2, MARIOLA MARTINEZ IN REACH AND BED IN LOWEST POSITION.
[2019-04-12 08:29] LABS: CREATININE 2.1 mg/dL (0.5-1.5); POTASSIUM 5.1 mmol/L (3.5-5.1)
[2019-04-12] MEDS ORDERED: SODIUM CHLORIDE 0.9% 1000ML 1,000 ML IV ONE (09:19)
[2019-04-12] MEDS ORDERED: DIAZEPAM 5 MG TABLET ONE (10:32)
[2019-04-12] MEDS ORDERED: NITROGLYCERIN 5 MG/ML 10 ML VIAL IV ONE (10:44)
[2019-04-12] MEDS ORDERED: HEPARIN SODIUM 1000UNIT/ML 10ML VIAL ONE (10:44)
[2019-04-12] MEDS ORDERED: IODIXANOL 320 MG/ML 100 ML VIAL ONE (10:44)
[2019-04-12] MEDS ORDERED: LIDOCAINE HCL 2% 20ML ONE ×2 (10:45→11:27)
[2019-04-12] MEDS ORDERED: DIAZEPAM 5 MG TABLET PO SCH (10:45)
[2019-04-12] MEDS ORDERED: FENTANYL CITRATE PF 50 MCG/1 ML 2ML VIAL ONE (10:45)
[2019-04-12] MEDS ORDERED: MIDAZOLAM HCL 1 MG/ML 2ML VIAL ONE (10:45)
--- NOTE | 2019-04-12 10:45 | NUR ---
PATIENT TRANSFERRED PATIENT TAKEN TO LAB TECHNOLOGIST VIA BED BY TRINI COOK AND TRINI GRIGGS. NO FAMILY MEMBERS IN PATIENT'S ROOM.
[2019-04-12] MEDS ORDERED: SODIUM CHLORIDE 0.9% 1000ML 1,000 ML IV SCH (11:59)
[2019-04-12] MEDS ORDERED: METOPROLOL TARTRATE 1 MG/ML 5ML VIAL IV PRN (12:00)
[2019-04-12] MEDS ORDERED: ACETAMINOPHEN-CODEINE 300/30MG TAB PO PRN (12:00)
[2019-04-12] MEDS ORDERED: HYDRALAZINE HCL 20 MG/ML VIAL IV PRN (12:00)
[2019-04-12] MEDS ORDERED: GLUCAGON 1MG KIT 1 MG ML IM PRN (12:00)
[2019-04-12] MEDS ORDERED: DEXTROSE 50%-WATER 50 ML DISP.SYRIN IV PRN (12:00)
--- NOTE | 2019-04-12 12:25 | NUR ---
PATIENT RETURNED PATIENT BROUGHT BACK FROM BULL LADLE TENDER VIA BED BY TRINI GRIGGS. PATIENT AAOX3, RESPIRATIONS UNLABORED, VITAL SIGNS STABLE, PATIENT DENIES ANY PAIN. DRESSING TO RIGHT GROIN IS DRY AND INTACT (DSTAT), NO BLEEDING OR DRAINAGE NOTED. AREA IS SOFT AND NONTENDER. PATIENT INSTRUCTED TO LAY FLAT AND KEEP RLE STRAIGHT, PATIENT VERBALIZED UNDERSTANDING. SIDE RAILS UPX2, BED IN LOWEST POSITION, CALL MARTINEZ IN REACH.
--- NOTE | 2019-04-12 14:30 | NUR ---
HANDOFF REPORT HANDOFF NURSING REPORT GIVEN AT BEDSIDE TO RAPHAEL ARENAS RN USING SBAR
[2019-04-12] MEDS ORDERED: INSULIN HUMULIN R 100 UNIT/ML 3ML SQ SCH (16:30)
--- NOTE | 2019-04-12 17:10 | NUR ---
PT LEFT VIA WHEELCHAIR IN PVT CAR. D/C INSTRUCTIONS GIVEN TO PATIENT WITH F/U APPT. NO COMPLICATION UP D/C, DRESSING DRY AND INTACT PULSES PRESENT.
== END 2019-04-12 17:10 | disposition home or self-care (01) ==
LOC: DAH 06:57
PROVIDERS: ATTEND Internal Medicine Cardiovascular Disease
DX: I71.4 Abdominal aortic aneurysm, without rupture (principal); I70.213 Atherosclerosis of native arteries of extremities with intermittent claudication, bilateral legs; E11.40 Type 2 diabetes mellitus with diabetic neuropathy, unspecified; E78.5 Hyperlipidemia, unspecified; I25.10 Atherosclerotic heart disease of native coronary artery without angina pectoris; I25.5 Ischemic cardiomyopathy; I50.22 Chronic systolic (congestive) heart failure; Z79.84 Long term (current) use of oral hypoglycemic drugs; Z79.899 Other long term (current) drug therapy; Z79.01 Long term (current) use of anticoagulants; Z95.810 Presence of automatic (implantable) cardiac defibrillator; Z95.5 Presence of coronary angioplasty implant and graft; Z85.118 Personal history of other malignant neoplasm of bronchus and lung; Z98.890 Other specified postprocedural states; Z82.49 Family history of ischemic heart disease and other diseases of the circulatory system; Z72.89 Other problems related to lifestyle; Z83.3 Family history of diabetes mellitus
CPT/HCPCS: 36200; 36415 ×2; 71045; 75630; 80048 ×2; 81001; 82948 ×2; 85025; 85610; 85730; 93005; A4215; A4216; A4221; A4222; A4223 ×3; A4606; C1769 ×3; C1894 ×3; J1644; J2250; J3010; J3490 ×3; J7030; Q9967; 36252; 99156; 99157